=== PATIENT | male | born 1995 | race Caucasian/White ===

== ENCOUNTER 2019-07-02 14:10 | Emergency (ER) | payer BC, SELFPAY ==
[2019-07-02 14:13] VITALS: BP 133/65; PULSE 74; RESP 18; TEMP 36.9; O2SAT 98; BMI 25.7
--- NOTE | 2019-07-02 14:28 | HMH.COUGH ---
Cough Clinic HPI - History of Present Illness HPI:: 24 year old male presents to the cough clinic complaining of a 2 day history of nasal congestion, cough and sore throat. He states he started have muscle aches and a low grade fever last night. He has no know sick contacts Home Medications: Home Medications Medication Instructions Recorded Confirmed Type Cefdinir [Omnicef 300mg Capsule] 300 mg PO BID #14 cap 07/02/19 Rx Allergies/Adverse Reactions: Allergies Allergy/AdvReac Type Severity Reaction Status Date / Time No Known Allergies Allergy Verified 07/02/19 14:18 Cough Clinic Triage - Symptoms Fever History: Yes Chills: Yes Myalgia: Yes Nasal Drainage: Yes Sore Throat: Yes Productive Cough: Yes (green/ yellow) Non-productive Cough: No Ear or Sinus Pain: Yes Joint Pain: Yes Chest Pain: No Rash: No Shortness of Breath: No Nausea or Vomitting: Yes Headache: Yes Abdominal Pain: Yes Diarrhea: Yes - Exposure History Foreign Travel: No Direct Contact with COVID-19 Patient: No - Risk Factors Greater than 60 Years Old: No COPD: No Diabetes: No Heart Disease: No Home Oxygen Use: No Chronic Renal Disease: No Chronic Liver Disease: No Neurologic/Neurodevelopmental/intellectual disability: No Other Chronic Diseases: No Current Smoker: Yes (1 ppd) Former Smoker: No - Gastrointestinal Gastrointestingal: Denies: nausea, vomiting - Neurologic Neurologic: Denies dizziness Cough Clinic Exam - General General appearance: alert, in no apparent distress - Head Head exam: atraumatic, normocephalic, normal inspection - Eye Eye exam: Present: normal appearance, PERRL, EOMI - ENT ENT exam: Present: normal exam, mucous membranes moist, TM's normal bilaterally, normal external ear exam - Expanded ENT Exam Throat exam: Present: tonsillar erythema - Neck Neck exam: Present: normal inspection, full ROM, trachea midline. Absent: meningismus, lymphadenopathy - Chest Chest inspection: Present: normal inspection, symmetric chest wall rise. Absent: tenderness - Respiratory Respiratory exam: Present: normal lung sounds bilaterally. Absent: respiratory distress - Cardiovascular Cardiovascular exam: Present: regular rate, normal rhythm. Absent: JVD - Extremities Exam Extremities exam: Present: normal inspection, full ROM, normal capillary refill. Absent: calf tenderness - Neurological Exam Neurological exam: Present: alert, oriented X3 - Skin Skin exam: Present: warm, dry, intact, normal color - Lymphatic Lymphatic Findings: no adenopathy Cough Clinic MDM Vital Signs: 07/02/19 14:13 07/02/19 14:58 Temperature 98.4 F 98.4 F Temperature Source Oral Oral Pulse Rate 74 Pulse Rate [Brachial] 74 Respiratory Rate 18 18 Blood Pressure 133/65 Blood Pressure [Right Arm] 133/65 Blood Pressure Mean [Right Arm] 87 Blood Pressure Source [Right Arm] Automatic Cuff Blood Pressure Position Sitting Blood Pressure Position [Right Arm] Sitting 02 Sat by Pulse Oximetry 98 Oxygen Delivery Method Room Air - Lab Data Lab results reviewed: Yes: I reviewed the patient's lab results. Lab Results 07/02/19 14:25: WBC 10.5, RBC 4.79, Hgb 14.1, Hct 44.0, MCV 91.7, MCH 29.5, MCHC 32.1, RDW 12.3, Plt Count 261, MPV 7.3 L, Neut % (Auto) 70.9, Lymph % (Auto) 19.4, [place] % (Auto) 6.8, Eos % (Auto) 2.3, Baso % (Auto) 0.6, Neut # (Auto) 7.5, Lymph # (Auto) 2.0, [place] # (Auto) 0.7, Eos # (Auto) 0.2, Baso # (Auto) 0.1 07/02/19 14:25: Influenza Type A Ag Negative, Influenza Type B Ag Negative 07/02/19 14:25: Group A Strep Rapid Negative Orders (Tests/Meds): ORDERS Category Date Time Status Strep Screen Confirmation Stat Micro 07/02/19 14:25 Received Medical Decision Narrative: CBC consistent with a bacterial URI. Cough Clinic Disposition Clinical Impression: URI (upper respiratory infection) Qualifiers: URI type: unspecified URI Qualified Code(s): J06.9 - Acute upper resp
[2019-07-02 14:38] LABS: Basophils % 0.6 % (0.1-2.0); Eosinophils % 2.3 % (0.1-12.0); Hemoglobin 14.1 g/dL (14.1-18.0); Lymphocytes % 19.4 % (10-50); Mean Corpuscular HGB Conc 32.1 g/dL (31.8-35.4); Mean Corpuscular Hemoglobin 29.5 pg (27.0-31.2); Mean Corpuscular Volume 91.7 fl (80-94); Mean Platelet Volume 7.3 fl (7.4-10.4); Monocytes % 6.8 % (1.7-9.3); Neutrophils # 7.5 K/mm3 (1.8-7.8); Neutrophils % 70.9 % (37.0-80.0); Platelet Count 261 K/mm3 (142-424); Red Blood Count 4.79 M/mm3 (4.60-6.20); Red Cell Distribution Width 12.3 % (11.5-17.5); White Blood Count 10.5 K/mm3 (4.8-10.8)
[2019-07-02 14:39] LABS: Basophils # 0.1 K/mm3 (0-0.2); Eosinophils # 0.2 K/mm3 (0.0-0.4); Monocytes # 0.7 K/mm3 (0.1-1.0)
[2019-07-02 14:41] LABS: Strep Scrn Group A (Rapid) Negative (Negative)
[2019-07-02 14:58] VITALS: BP 133/65; PULSE 74; RESP 18; TEMP 36.9; O2SAT 98
== END 2019-07-02 15:01 | disposition home or self-care (01) ==
PROVIDERS: Emergency Provider Family Medicine
DX: J06.9 Acute upper respiratory infection, unspecified (principal)
CPT/HCPCS: 36415; 85025; 87275; 87276; 87430; 99201; 99213

== ENCOUNTER 2020-04-05 14:34 | Emergency (ER) | payer BC, SELFPAY ==
[2020-04-05 14:39] VITALS: BP 146/84; PULSE 70; RESP 16; O2SAT 98; BMI 26.6
[2020-04-05 14:45] VITALS: BP 146/84; PULSE 70; RESP 16; TEMP 36.8; O2SAT 98; BMI 26.5
--- NOTE | 2020-04-05 15:08 | XR_ITS ---
PROCEDURE: XR KUB CLINICAL INDICATION: STOMACH PAINS COMPARISON: No exams were available for comparison FINDINGS: Gas pattern-The bowel gas pattern is unremarkable. No obvious obstruction. Calcifications-No abnormal calcifications are evident. No obvious renal or ureteral calculi. Bones-No acute bony anomalies evident. Initially there was artifact in the upper abdomen from patient's garment or vest. Patient was brought back and repeat images were performed showing no abnormality in this area. IMPRESSION: Negative KUB Dictated by: Stefano Damian MD 04/07/2020 10:01 Stefano Damian MD in [place] 04/07/2020 10:01
--- NOTE | 2020-04-05 15:09 | HMH.EDUTC ---
[facility] [place] Disposition Clinical Impression: Constipation Qualifiers: Constipation type: unspecified constipation type Qualified Code(s): K59.00 - Constipation, unspecified Disposition: Home, Self-Care Condition on Discharge: Good Instructions: Polyethylene Glycol 3350, Magnesium Citrate Additional Instructions: Make sure that you are drinking plenty of fluids Return if needed Straight to ER if any life threatening symptoms Make sure that you are drinking plenty of fluids to help to rid stool from bowels Make sure that you are getting plenty of fiber in your diet to help keep your bowel movements regular Prescriptions: polyethylene glycoL 3350 [Miralax 17gm Packet] 17 gm PO DAILY #30 packet Transmission Status: Received by [id number] Referrals: PCP,No [Primary Care Provider] - Forms: Work/School Release Time of Disposition: 16:22 Medical Decision Making - Francisco Inquiry Pt receiving controlled substance: No Francisco was queried for this patient: No Vital Signs: 04/05/20 14:39 04/05/20 14:45 04/05/20 16:28 Temperature 98.2 F 98.2 F Temperature Source Oral Pulse Rate 70 Pulse Rate [Right] 70 70 Respiratory Rate 16 16 16 Blood Pressure 146/84 H Blood Pressure [Right Arm] 146/84 H 146/84 H Blood Pressure Mean [Right Arm] 104 104 Blood Pressure Source [Right Arm] Automatic Cuff Automatic Cuff Blood Pressure Position [Right Arm] Sitting Sitting 02 Sat by Pulse Oximetry 98 98 Oxygen Delivery Method Room Air Orders (Tests/Meds): ED MEDICATIONS Discontinued Medications Generic Name Dose Route Start Last Admin Trade Name Freq PRN Reason Stop Dose Admin Magnesium Citrate 1 bot 04/05/20 16:21 04/05/20 16:33 Magnesium Citrate 10oz Bottle PO 04/05/20 16:22 1 bot ONCE ONE Administration ORDERS Category Date Time Status KUB (single view) [XR KUB] Stat Exams 04/05/20 15:08 Taken - Radiology Data #1 Image(s): KUB Image Reviewed: Yes I reviewed the patient's radiology image w/the ED provider Constipation [facility] [place] HPI - General Stated complaint: Pain in abd when breathing Time Seen by Provider: 04/05/20 15:09 Mode of Arrival: Ambulatory Source of Information: Patient Limitations: No Limitations Description of Symptoms (Recalled from Triage Doc. by RN): PT advises yesterday when he would take a deep breathe it would hurt below his belly button and up into his sides. Advises it doesnt hrt when he touches it and it doesnt hurt all the time. Deneies any other symptoms. Advises he came in today because it didn't get any better and it had been a long time since he got checked out. HEENT Symptoms (Recalled from RN notes): No Resp Symptoms (Recalled from RN notes): No Skin Symptoms (Recalled from RN notes): No MS Symptoms (Recalled from RN notes): No Functional Status (Recalled from RN notes): WNL - History of Present Illness Provider Complaint: Patient states that over the weekend he worked on his vehicle and was bent over vehicle and at times would put pressure on his abdomen reaching States that he is not sure if he may have pulled something States that he has pain yesterday across his umbilical area and felt like it was sore on the sides of his abdomen at times States that today he was feeling better but work wanted him to come and get checked out States that he also has a history of GERD and had similiar symptoms before like this when he was having GERD issues denies belching denies pain at this time and denies pain with touch. Reports unsure of last BM - Related Data Previous Rx's Medication Instructions Recorded Cefdinir [Omnicef 300mg Capsule] 300 mg PO BID #14 cap 07/02/19 polyethylene glycoL 3350 [Miralax 17 gm PO DAILY #30 packet 04/05/20 17gm Packet] Allergies Allergy/AdvReac Type Severity Reaction Status Date / Time No Known Allergies Allergy Verified 07/02/19 14:18 - Worker's Comp Is this a Worker's Comp case?: No [facility]
[2020-04-05 16:28] VITALS: BP 146/84; PULSE 70; RESP 16; TEMP 36.8; O2SAT 98
== END 2020-04-05 16:30 | disposition home or self-care (01) ==
PROVIDERS: Emergency Provider Nurse Practitioner
DX: K59.00 Constipation, unspecified (principal)
CPT/HCPCS: 74018; 99202; G0463